=== PATIENT | female | born 1985 | race Caucasian/White ===

== ENCOUNTER 2017-07-18 07:25 | Emergency (ER) | payer SELFPAY ==
[~2017-07-18] VITALS: Ht 170.2 cm; Wt 56.7 kg
[~2017-07-18 07:25] MED LIST: ARISTOCORT A 0.60 GM TOP; ATARAX PO; BENADRYL PO; BENADRYL25 MG PO; BENTYL10 MG PO; CIPRO PO; DEPO-PROVER150 MG/ML INJ; ERYTHROMYCIN O3.5 GM OD; IBUPROFEN800 MG PO; KEFLEX PO; KEFLEX500 M1 PO; LORTAB 5/500 TA1 TA1 PO; MACROBID100 MG PO; MEDROL PO; MEDROL4 MG/DOSE- PO; NO MEDICATIONS; PHENERGAN25 MG PO; PREDNISONE PO; PRENATAL VITAMI1 TA3 PO; PRENATAL1 TA1 PO; ULTRAM PO; VICODIN 5/1 TAB 5/50 PO; VICODIN 5/500 T1 TAB PO; ZANTAC150 M1 PO
[2017-07-18 10:33] LABS: URINE SOURCE CLEAN CATCH
[2017-07-18 10:40] LABS: URINE APPEARANCE CLEAR; URINE BILIRUBIN NEG (NEG); URINE BLOOD NEG (NEG); URINE COLOR YELLOW; URINE GLUCOSE NEG (NEG); URINE KETONE NEG (NEG); URINE LEUKOCYTE ESTERASE 1+ (NEG); URINE NITRATE NEG (NEG); URINE PH 6.5 (5-8); URINE PROTEIN NEG (NEG); URINE SPECIFIC GRAVITY 1.016 (1.003-1.035); URINE UROBILINOGEN 0.2 MG/DL (NEG)
[2017-07-18 10:41] LABS: CULTURE INDICATED? YES; URBCS1 AUWI 0-2 /[HPF] (0-2); URINE BACTERIA AUWI NEG (NEGATIVE); URINE SQUAMOUS EPITHELIAL CELL OCC /[HPF]
[2017-07-20 08:03] LABS: CHLAMYDIA TRACH Not Detected (Not Detected); N GONOR Detected (Not Detected)
== END 2017-07-18 11:32 | disposition home or self-care (01) ==
LOC: CED 07:25
PROVIDERS: Nurse Practitioner
DX: N76.0 Acute vaginitis (principal); A59.03 Trichomonal cystitis and urethritis; M54.5 Low back pain; I10 Essential (primary) hypertension; Z98.51 Tubal ligation status; F17.210 Nicotine dependence, cigarettes, uncomplicated
CPT/HCPCS: 81003; 84703; 87086; 87088; 87186; 87220; 87491; 87591; 87808; 87905; 99283; J0696